=== PATIENT | female | born 1945 | race Caucasian/White ===

== ENCOUNTER 2017-05-27 08:10 | Day surgery (SDC) | payer MEDICARE ==
[~2017-05-27 08:10] MED LIST: Buffered Lidocaine 0.9% SYRIN* 5 ML/SYR SYRINGE INTRADERM ONE; Dexamethasone IV* 4 MG/ML 1 ML (4 MG) IV SLOW PU ONE; Dexamethasone IV* 4 MG/ML 1 ML (4 MG) ONE; Metoclopramide IV* 5 MG/ML 2 ML VIAL IV SLOW PU ONE; Metoclopramide IV* 5 MG/ML 2 ML VIAL ONE
[2017-05-27] MEDS ORDERED: Buffered Lidocaine 0.9% SYRIN* 5 ML/SYR SYRINGE ONE (08:11)
[2017-05-27] MEDS ORDERED: fentaNYL* 50 MCG/ML 2 ML VIAL (100 MCG VIAL) ONE (09:50)
[2017-05-27] MEDS ORDERED: Midazolam* 1 MG/ML 2 ML VIAL (2 MG) ONE (09:50)
[2017-05-27] MEDS ORDERED: EPINEPHrine AMP 1 MG/ML ONE (09:52)
[2017-05-27] MEDS ORDERED: Lidocaine 2% EPI 1:200000 MPF* 20 ML VIAL ONE (09:53)
[2017-05-27] MEDS ORDERED: Ciprofloxacin 0.3% OPTH.SOL* 2.5 ML BTL ONE (09:53)
[2017-05-27] MEDS ORDERED: Bacitracin OINTMENT* 1 TUBE ONE (09:53)
[2017-05-27] MEDS ORDERED: Gelfoam Sponge SIZE 100* SPONGE ONE (09:53)
[2017-05-27] MEDS ORDERED: Propofol* 10 MG/ML 20 ML BTL IV PUSH ONE (09:55)
[2017-05-27] MEDS ORDERED: Lidocaine 2% PF * 5 ML VIAL ONE (09:55)
[2017-05-27] MEDS ORDERED: Ondansetron INJ* 2 MG/ML VIAL ONE (09:55)
[2017-05-27] MEDS ORDERED: DiMENhydriNATE IV* 50 MG/ML VIAL IV PUSH PRN (10:59)
[2017-05-27] MEDS ORDERED: HYDROcodone/ACETAMIN 5-325 MG* 1 TAB PO PRN (10:59)
[2017-05-27] MEDS ORDERED: fentaNYL* 50 MCG/ML 2 ML VIAL (100 MCG VIAL) IV PRN (10:59)
[2017-05-27] MEDS ORDERED: HYDROmorphone* 1 MG/ML 1 ML SYR IV PRN (10:59)
[2017-05-27] MEDS ORDERED: Ondansetron ODT TAB* 4 MG PO PRN (10:59)
[2017-05-27] MEDS ORDERED: EPHEDrine (Pressors)* 50 MG/ML VIAL ONE (11:03)
[2017-05-27 12:22] VITALS: BP 96/53
--- NOTE | 2017-05-27 19:22 | OP ---
DATE OF OPERATION: 05/27/17 - [facility] DATE OF : 47 SURGEON: Kevon Penn M.D. ANESTHESIOLOGIST: Dorinda Whitney MD ANESTHESIA: General PRE-OP DIAGNOSIS: Left tympanic membrane perforation with conductive hearing loss. POST-OP DIAGNOSIS: Left tympanic membrane perforation with conductive hearing loss. OPERATIVE PROCEDURE: Tympanoplasty with graft. BRIEF HISTORY: This is a 71-year-old female with an approximately 60% perforation in the pars tensa with conductive hearing loss, elected for surgical management. DESCRIPTION OF PROCEDURE: The patient was taken to the operating room, general anesthesia was given, the patient was intubated with an LMA. Left ear was then prepped and draped in the usual fashion. I examined the ear with a microscope, the margins of perforation were lateral. The skin was elevated and middle ear mucosa was examined, noted to be normal. Then I harvested a piece of cartilage graft from the kaylah. This graft was thinned to 0.2 mm. It was then used as an underlay, fashioning it in the shape of the perforation. The perichondrium was then draped over the denuded epithelium. The middle ear was packed with Gelfoam, and then once this graft was in place, the lateral portion was packed with Gelfoam. The postauricular incision was closed. A small cotton ball was applied. The patient was then awakened, sent to the recovery room in stable condition. Instrument and sponge count correct. Blood loss minimal. [id number]/CPS #: [id number] MTDD
== END 2017-05-27 12:57 | disposition home or self-care (01) ==
LOC: OR 08:10
PROVIDERS: ATTEND Otolaryngology
DX: H72.02 Central perforation of tympanic membrane, left ear (principal); H90.72 Mixed conductive and sensorineural hearing loss, unilateral, left ear, with unrestricted hearing on the contralateral side; Z79.82 Long term (current) use of aspirin; Z87.891 Personal history of nicotine dependence
CPT/HCPCS: A9270-GY; J0171; J1100; J2250; J2405; J2704; J2765; J3010

== ENCOUNTER 2017-08-31 10:49 | Emergency (ER) | payer MEDICARE ==
[2017-08-31 11:01] VITALS: BP 120/63
--- NOTE | 2017-08-31 11:41 | UC ---
Truncal Trauma HPI - HPI Summary HPI Summary: right side rib pain x 2 weeks s/p fall on her right side 2 weeks ago , no swelling, no bruising no cough , no sob - History Of Current Complaint Chief Complaint: UCChestPain Stated Complaint: S/P FALL RIGHT RIB INJURY Time Seen by Provider: 08/31/17 11:09 Hx Obtained From: Patient Onset/Duration: Sudden Onset, Lasting Weeks - 2, Still Present Onset Of Pain: Immediate Severity Initially: Moderate Severity Currently: Moderate Mechanism Of Injury: Fall From A Standing Position Aggravating Factor(s): Movement, Deep Breathing, Cough Alleviating factor(s): Rest, Shallow Breathing Associated Signs And Symptoms: Negative: SOB, Chest Pain, Cough, Hematuria, Abdominal Pain, Fever, Nausea, Vomiting - Allergies/Home Medications Allergies/Adverse Reactions: Allergies Allergy/AdvReac Type Severity Reaction Status Date / Time dairy Allergy ear Uncoded 08/31/17 11:02 congestion dust pollen mold Allergy Congestion Uncoded 08/31/17 11:02 PMH/Surg Hx/FS Hx/Imm Hx Previously Healthy: Yes - Surgical History Surgical History: Yes Surgery Procedure, Year, and Place: BREAST IMPLANTS,, 1974, [place]. RIBS REMOVED FOR THORACIC OUTLET SYNDROME, 1979, [facility]. TUBAL LIGATION, 1980, [place] - Family History Known Family History: Negative: Diabetes - Social History Alcohol Use: Weekly Alcohol Amount: 1 per week Substance Use Type: None Smoking Status (MU): Former Smoker Amount Used/How Often: 1/2 pack for 30 yrs Have You Smoked in the Last Year: No When Did the Patient Quit Smoking/Using Tobacco: 38 years ago Review of Systems Constitutional: Negative Skin: Negative Eyes: Negative ENT: Negative Is Patient Immunocompromised?: No All Other Systems Reviewed And Are Negative: Yes Physical Exam Triage Information Reviewed: Yes Appearance: Well-Appearing, No Pain Distress, Well-Nourished Vital Signs: Initial Vital Signs Temp 99 F 08/31/17 10:54 Pulse 75 08/31/17 10:54 Resp 18 08/31/17 10:54 BP 120/63 08/31/17 10:54 Pulse Ox 100 08/31/17 10:54 Vital Signs Reviewed: Yes Eyes: Positive: Conjunctiva Clear ENT: Positive: Normal ENT inspection, Hearing grossly normal, Pharynx normal Neck: Positive: Supple, Nontender, No Lymphadenopathy Respiratory: Positive: Chest non-tender, Lungs clear, Normal breath sounds, Other: - tenderenss right mid ribs no swelling, no ecchymosis Abdominal Exam: Normal Abdomen Description: Positive: Nontender, Soft. Negative: CVA Tenderness (R), CVA Tenderness (L), Distended, Guarding Bowel Sounds: Positive: Present Neurological: Positive: Alert Skin Exam: Normal Diagnostics - Laboratory Diagnostic Studies Completed/Ordered: xray right ribs: no fracture seen Truncal Trauma Course/Dx - Differential Dx/Diagnosis Provider Diagnoses: contusion right ribs Discharge - Discharge Plan Condition: Stable Disposition: HOME Patient Education Materials: Rib Contusion (ED) Referrals: Km Adhikari MD [Primary Care Provider] - If Needed
--- NOTE | 2017-08-31 11:48 | RAD ---
INDICATION: Right rib injury. COMPARISON: Comparison is made with a prior chest x-ray study from November 21, 2014. TECHNIQUE: 2 views of the right ribs and dual-energy PA views of the chest were obtained. FINDINGS: There is an old healed fracture of the right posterior eighth rib. No acute fracture is seen. The heart is within normal limits in size. The lungs are clear. There is no evidence for pneumothorax or pleural effusion. Peripheral calcifications are noted in bilateral breast implants. IMPRESSION: NO EVIDENCE FOR FRACTURE.
== END 2017-08-31 12:01 | disposition home or self-care (01) ==
LOC: UCCORT 10:49
DX: S20.20XA Contusion of thorax, unspecified, initial encounter (principal); W19.XXXA Unspecified fall, initial encounter; Y93.9 Activity, unspecified; Y92.9 Unspecified place or not applicable; Z87.891 Personal history of nicotine dependence
CPT/HCPCS: 99211; G0463

== ENCOUNTER 2018-03-02 07:54 | Emergency (ER) | payer MEDICARE ==
[2018-03-02 08:15] VITALS: BP 100/60
--- NOTE | 2018-03-02 08:26 | UC ---
Respiratory Complaint HPI - HPI Summary HPI Summary: productive cough x 1 week + yellow sputum sore throat , mild nasal congestion , pnd + fever, chills, body aches - History of Current Complaint Chief Complaint: UCGeneralIllness Stated Complaint: ST/COUGH Time Seen by Provider: 03/02/18 08:04 Hx Obtained From: Patient Onset/Duration: Gradual Onset, Lasting Weeks - 1, Still Present Timing: Constant Severity Initially: Moderate Severity Currently: Moderate Pain Intensity: 3 Character: Cough: Productive Aggravating Factors: Exertion, Deep Breaths Alleviating Factors: Nothing Associated Signs And Symptoms: Positive: Fever, Chills, URI, Nasal Congestion. Negative: Dyspnea, Pleuritic Chest Pain, Wheezing, Hemoptysis, Dizziness, Calf Pain, Calf Swelling, Edema, Hoarseness, Sinus Discomfort - Allergies/Home Medications Allergies/Adverse Reactions: Allergies Allergy/AdvReac Type Severity Reaction Status Date / Time dairy Allergy ear Uncoded 03/02/18 08:14 congestion dust pollen mold Allergy Congestion Uncoded 03/02/18 08:14 PMH/Surg Hx/FS Hx/Imm Hx Previously Healthy: Yes - Surgical History Surgical History: Yes Surgery Procedure, Year, and Place: BREAST IMPLANTS,, 1974, [place]. RIBS REMOVED FOR THORACIC OUTLET SYNDROME, 1979, [facility]. TUBAL LIGATION, 1980, [place] - Family History Known Family History: Negative: Diabetes - Social History Alcohol Use: Occasionally Alcohol Amount: 1 per week Substance Use Type: None Smoking Status (MU): Former Smoker Amount Used/How Often: 1/2 pack for 30 yrs Have You Smoked in the Last Year: No When Did the Patient Quit Smoking/Using Tobacco: 40 years ago Review of Systems Constitutional: Fever, Chills, Fatigue Skin: Negative Eyes: Negative ENT: Sore Throat, Nasal Discharge Respiratory: Cough Cardiovascular: Negative Gastrointestinal: Negative Genitourinary: Negative Is Patient Immunocompromised?: No All Other Systems Reviewed And Are Negative: Yes Physical Exam Triage Information Reviewed: Yes Appearance: Well-Appearing, No Pain Distress, Well-Nourished Vital Signs: Initial Vital Signs Temp 100.8 F 03/02/18 08:11 Pulse 83 03/02/18 08:11 Resp 16 03/02/18 08:11 BP 100/60 03/02/18 08:11 Pulse Ox 99 03/02/18 08:11 Vital Signs Reviewed: Yes Eyes: Positive: Conjunctiva Clear ENT: Positive: Normal ENT inspection, Hearing grossly normal, Pharynx normal, Nasal drainage, TMs normal. Negative: Tonsillar swelling, Tonsillar exudate, Trismus Neck: Positive: Supple, Nontender, No Lymphadenopathy Respiratory: Positive: Chest non-tender, Lungs clear, Normal breath sounds Cardiovascular: Positive: RRR, No Murmur, Pulses Normal Skin Exam: Normal UC Diagnostic Evaluation - Laboratory O2 Sat by Pulse Oximetry: 99 Respiratory Course/Dx - Differential Dx/Diagnosis Provider Diagnoses: Bronchitis Discharge - Sign-Out/Discharge Documenting (check all that apply): Discharge/Admit/Transfer - Discharge Plan Condition: Stable Disposition: HOME Prescriptions: Azithromycin TAB* [Zithromax TAB (Z-CASEY) 250 mg #6 tabs] 2 tab PO .TODAY, THEN 1 DAILY #1 casye Patient Education Materials: Acute Bronchitis (ED) Referrals: Km Adhikari MD [Primary Care Provider] - 7 Days - Billing Disposition and Condition Condition: STABLE Disposition: Home
== END 2018-03-02 08:37 | disposition home or self-care (01) ==
LOC: UCCORT 07:54
DX: J40 Bronchitis, not specified as acute or chronic (principal); F17.210 Nicotine dependence, cigarettes, uncomplicated
CPT/HCPCS: 87651; 99212; G0463

== ENCOUNTER 2019-01-03 10:38 | Emergency (ER) | payer MEDICARE ==
[2019-01-03 11:52] VITALS: BP 111/70
--- NOTE | 2019-01-03 12:30 | UC ---
UC General HPI - HPI Summary HPI Summary: PT ACCIDENTALLY HIT THE TIP OF HER R GREAT TOE WITH A HEAVY BOOT 2 MONTHS AGO AND HAS HAD PAIN SINCE THEN. LAST WEEK SHE WAS HIKING AND THE TOE WAS JAMMING IN HER BOOT MAKING THE TOE WORSE. - History of Current Complaint Chief Complaint: UCLowerExtremity Stated Complaint: RIGHT BIG TOE CONCERN Time Seen by Provider: 01/03/19 12:23 Hx Obtained From: Patient Timing: Constant Pain Intensity: 5 Aggravating: TOUCH Associated Signs & Symptoms: Negative: Fever - Allergy/Home Medications Allergies/Adverse Reactions: Allergies Allergy/AdvReac Type Severity Reaction Status Date / Time dairy Allergy ear Uncoded 01/03/19 11:53 congestion dust pollen mold Allergy Congestion Uncoded 01/03/19 11:53 PMH/Surg Hx/FS Hx/Imm Hx Previously Healthy: Yes - Surgical History Surgical History: Yes Surgery Procedure, Year, and Place: BREAST IMPLANTS,, 1974, [place]. RIBS REMOVED FOR THORACIC OUTLET SYNDROME, 1979, [facility]. TUBAL LIGATION, 1980, [place] - Family History Known Family History: Positive: Non-Contributory Negative: Diabetes - Social History Alcohol Use: Occasionally Alcohol Amount: 1 per week Substance Use Type: None Smoking Status (MU): Former Smoker Amount Used/How Often: 1/2 pack for 30 yrs Have You Smoked in the Last Year: No When Did the Patient Quit Smoking/Using Tobacco: 40 years ago Review of Systems All Other Systems Reviewed And Are Negative: No Constitutional: Negative: Fever Musculoskeletal: Negative: Decreased ROM, Edema Physical Exam Triage Information Reviewed: Yes Appearance: Well-Appearing Vital Signs: Initial Vital Signs Temp 97.7 F 01/03/19 11:47 Pulse 69 01/03/19 11:47 Resp 16 01/03/19 11:47 BP 111/70 01/03/19 11:47 Pulse Ox 99 01/03/19 11:47 Vital Signs Reviewed: Yes Eyes: Positive: Conjunctiva Clear Respiratory: Positive: Lungs clear Cardiovascular: Positive: RRR Abdomen Description: Positive: Nontender Musculoskeletal: Positive: Other: - R FOOT=TIP OF GREAT TOE IS TENDER. GREAT TOE HAS A SUBUNGUAL HEMATOMA. TOE HAS FULL S/V/M FUNCTION. REST OF FOOT IS UNREMARKABLE. Neurological: Positive: Alert Psychological: Positive: Age Appropriate Behavior Skin Exam: Normal Diagnostics - Radiology No standard instances Radiology Interpretation Completed By: Radiologist - R Great Toe IMPRESSION: Deformity of the distal tuft of the great toe. Degenerative changes of the distal interphalangeal joint. Course/Dx - Course Course Of Treatment: PROCEDURE: TIME OUT. BETADINE TO NAIL OF R GREAT TOE. CAUTERY STICK USED TO BURN HOLE; HOWEVER, NO BLOOD DRAINED. ADDITIONAL INSPECTION REVEALS THE THE VERY CENTER OF THE NAIL IS AVULSED BUT THE SIDE AND BASE REMAIN INTACT. PT ADVISED THE NAIL WILL PROBABLY FALL OFF WITH TIME. - Diagnoses Provider Diagnosis: Subungual hematoma, Nail avulsion, toe Discharge - Sign-Out/Discharge Documenting (check all that apply): Patient Departure All imaging exams completed and their final reports reviewed: Yes - Discharge Plan Condition: Stable Disposition: HOME Patient Education Materials: Subungual Hematoma (ED), Nail Avulsion (ED) Referrals: Km Adhikari MD [Primary Care Provider] - If Needed - Billing Disposition and Condition Condition: STABLE Disposition: Home
== END 2019-01-03 13:12 | disposition home or self-care (01) ==
LOC: UCCORT 10:38
DX: S90.211A Contusion of right great toe with damage to nail, initial encounter (principal); S91.201A Unspecified open wound of right great toe with damage to nail, initial encounter; W22.8XXA Striking against or struck by other objects, initial encounter; M20.5X1 Other deformities of toe(s) (acquired), right foot; Z87.891 Personal history of nicotine dependence
CPT/HCPCS: 11740; 99211; G0463